=== PATIENT | female | born 1980 | race Caucasian/White ===

== ENCOUNTER 2020-03-18 15:55 | Emergency (ER) | payer BC ==
[~2020-03-18] VITALS: Ht 182.9 cm; Wt 110.2 kg
[~2020-03-18 15:55] MED LIST: THY30
[2020-03-18 16:01] VITALS: Ht 182.9 cm; Wt 110.2 kg
[2020-03-18 17:49] VITALS: BP 121/74
== END 2020-03-18 17:50 | disposition home or self-care (01) ==
LOC: ED 15:55
DX: S81.812A Laceration without foreign body, left lower leg, initial encounter (principal); E03.9 Hypothyroidism, unspecified; W26.8XXA Contact with other sharp object(s), not elsewhere classified, initial encounter; Y93.89 Activity, other specified; Y92.89 Other specified places as the place of occurrence of the external cause; Y99.8 Other external cause status
CPT/HCPCS: 90715; J2001; Q0092